=== PATIENT | female | born 1985 | race Two or more races ===

== ENCOUNTER → 2017-11-02 | Outpatient (REF) | payer OTHER ==
[2017-11-03 00:18] LABS: CHLAMYDIA DNA AMPLIFICATION NEGATIVE (NEGATIVE); GC DNA AMPLIFICATION NEGATIVE (NEGATIVE)
[2017-11-03 11:05] LABS: HEPATITIS B SURFACE ANTIGEN NEGATIVE (NEGATIVE)
[2017-11-03 11:31] LABS: HIV 1&2 SCREEN CENTAUR NEGATIVE (NEGATIVE)
[2017-11-03 12:45] LABS: RUBELLA IgG QUALITATIVE IMMUNE (IMMUNE)
[2017-11-06 00:06] LABS: QUANTIFERON GOLD TB Negative (Negative); TB Test (QFT) Antigen 0.04 IU/mL (.); TB Test (QFT) Mitogen >10.00 IU/mL (.); TB Test (QFT) Nil 0.04 IU/mL (.)
[2017-11-08 00:07] LABS: HEPATITIS A IgG TOTAL Negative (Negative); POLIO ANTIBODIES/POLIOMYELITIS 1:32 (Neg:<1:8); RUBEOLA IgG ANTIBODY <25.0 AU/mL (Immune >29.9)
[2017-11-08 00:07] LABS: HERPES ZOSTER, VARICELLA IgG <135 index (Immune >165)
== END ==
LOC: M SFHCLERA 15:52
DX: Z20.9 Contact with and (suspected) exposure to unspecified communicable disease (principal); Z01.84 Encounter for antibody response examination

== ENCOUNTER → 2018-01-09 | Outpatient (REF) | payer OTHER | LOC: M SFHCLERA 15:58 | DX: J02.9 Acute pharyngitis, unspecified (principal) ==